=== PATIENT | female | born 2000 | race Hispanic/Latino ===

== ENCOUNTER 2020-10-19 10:13 | Emergency (ER) | payer OTHER ==
[2020-10-19] MEDS ORDERED: CLINDAMYCIN HCL 150 MG CAP ONE (12:25)
== END 2020-10-19 13:49 | disposition home or self-care (01) ==
LOC: EDH 10:13
DX: S51.831A Puncture wound without foreign body of right forearm, initial encounter (principal); J45.909 Unspecified asthma, uncomplicated; Z88.6 Allergy status to analgesic agent; W54.0XXA Bitten by dog, initial encounter; Y93.89 Activity, other specified; Y92.89 Other specified places as the place of occurrence of the external cause; Y99.8 Other external cause status
CPT/HCPCS: 73110